=== PATIENT | male | born 1960 | race Caucasian/White ===

== ENCOUNTER 2021-09-05 05:31 | Outpatient (CLI) | payer BC ==
[~2021-09-05] VITALS: Ht 180.3 cm; Wt 106.6 kg
[2021-09-05] MEDS ORDERED: CYAN250014 PO (10:39)
[2021-09-05] MEDS ORDERED: FLUT1DIS26 IH (10:39)
[2021-09-05] MEDS ORDERED: ASCO100024 PO (10:39)
[2021-09-05] MEDS ORDERED: MV-M1TAB20 PO (10:39)
[2021-09-05] MEDS ORDERED: FAMO-144 PO (10:39)
[2021-09-05] MEDS ORDERED: ZINC50TA11 PO (10:39)
== END 2021-09-05 11:05 | disposition home or self-care (01) ==
LOC: PREOP 05:31
PROVIDERS: ATTEND Internal Medicine
DX: Z01.818 Encounter for other preprocedural examination (principal)

== ENCOUNTER 2021-09-08 07:15 | Day surgery (SDC) | payer BC ==
--- NOTE | 2021-09-04 16:15 | HISTORY AND PHYSICAL ---
DATE OF SERVICE: COLONOSCOPY HISTORY AND PHYSICAL HISTORY: The patient is a 60-year-old white male referred for his first screening colonoscopy. He seemed to be of average risk as he is not aware of any family history for colon cancer. He denies bright red blood per rectum, melena, change in bowel habit or change in weight. He also denies abdominal pain. PAST MEDICAL HISTORY: Significant for lumbar radiculopathy as well as cervical radiculopathy, which required cervical fusion and lumbar diskectomy. He suffered a cervical fracture that required lana stabilization a number of years ago and has done well since. 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 SOCIAL HISTORY: Pertinent for occasional alcohol consumption in moderation. Past medical history other than above is significant for asthma, under good control on Advair per his report and gastroesophageal reflux for which she takes pantoprazole. REVIEW OF SYSTEMS: CONSTITUTIONAL: Denies night sweats, chills, fever or change in weight. GASTROINTESTINAL: As noted in the HPI. PULMONARY: Denies cough, wheezing or shortness of breath. Good asthma control. CARDIOVASCULAR: Denies orthopnea, PND, pedal edema, dyspnea on exertion or chest discomfort. PHYSICAL EXAMINATION: GENERAL: Reveals a well-appearing white male in no acute distress. VITAL SIGNS: Weight 238 pounds, blood pressure 130/82. HEENT: Unremarkable. CHEST: Clear. CARDIOVASCULAR: Reveals a regular rate and rhythm without murmur, S3 or S4. ABDOMEN: Soft, supple without mass, organomegaly or tenderness. EXTREMITIES: Reveal no cyanosis, clubbing or edema. ADDITIONAL FAMILY HISTORY: Mother at age 70 of an AR. Father at age of 64 of an AR and was a heavy smoker. ASSESSMENT AND PLAN: The patient is being set up for his first screening colonoscopy, deemed to be of average risk as noted above. Prep instructions with the Suprep kit were given and questions were answered. I thank you for the referral of this pleasant gentleman. Job ID: [id number] DocumentID: [id number] Dictated Date: 08/28/2021 16:57:25 [employer] Cutter Date: 08/28/2021 17:11:20 Dictated By: DONALD GUILLORY MD [facility]
[~2021-09-08] VITALS: Ht 180 cm; Wt 106.6 kg
[~2021-09-08 07:15] MED LIST: ASCO100024 PO; CYAN250014 PO; FAMO-144 PO; FLUT1DIS26 IH; MV-M1TAB20 PO; ZINC50TA11 PO
[2021-09-08] MEDS ORDERED: LACTATED RINGERS 1,000 ML IV STA (07:18)
[2021-09-08] MEDS ORDERED: LACTATED RINGERS 1,000 ML IV ONE (07:26)
[2021-09-08 07:27] VITALS: BP 102/78
[2021-09-08] MEDS ORDERED: PROPOFOL INJECTION 50 ML IV ONE (07:39)
--- NOTE | 2021-09-08 08:09 | Pre-Op Note & Conscious Sedat ---
Pre-Operative Progress Note H&P Reviewed The H&P was reviewed, patient examined and no changes noted. Date H&P Reviewed: Sep 08, 2021 Time H&P Reviewed: 08:09 Conscious Sedation Pre-Proced ASA Score 2 For ASA 3 and 4: Consider anesthesia and medical clearance. Also, for patients with a history of failed moderate sedation consider anesthesia. Airway Lungs Heart ASA score ASA 1: a normal healthy patient ASA 2: a patient with a mild systemic disease (mid diabetes, controlled hypertension, obesity ASA 3: a patient with a severe systemic disease that limits activity (angina, COPD, prior Myocardial infarction) ASA 4: a patient with an incapacitating disease that is a constant threat to life (CHF, renal failure) ASA 5: a moribund patient not expected to survive 24 hrs. (ruptured aneurysm) ASA 6: a declared brain- patient whose organs are being harvested. For emergent operations, add the letter E after the classification Mallampati Classification Grade 2 Sedation Plan Analgesia, Amnesia, Plan communicated to team members, Discussed options with patient/fam, Discussed risks with patient/fam The patient is an appropriate candidate to undergo the planned procedure, sedation, and anesthesia. The patient immediately re-assessed prior to indication. DONALD GUILLORY MD Sep 08, 2021 08:09
[2021-09-08 08:30] VITALS: BP 111/70
[2021-09-08 08:35] VITALS: BP 98/63
[2021-09-08 08:39] VITALS: BP 106/66
--- NOTE | 2021-09-08 08:57 | Anesthesia-General Post-Op ---
MAC Patient Condition Mental Status/LOC: Same as Preop Cardiovascular: Satisfactory Nausea/Vomiting: Absent Respiratory: Satisfactory Pain: Controlled Complications: Absent Post Op Complications Complications None Follow Up Care/Instructions Patient Instructions None needed. Anesthesiology Discharge Order Discharge Order Patient is doing well, no complaints, stable vital signs, no apparent adverse anesthesia problems. No complications reported per nursing. BREANA MCCLURE CRNA Sep 08, 2021 08:57
[2021-09-08 09:05] VITALS: BP 111/68
--- NOTE | 2021-09-08 12:48 | OPERATIVE REPORT ---
DATE OF SERVICE: COLONOSCOPY SUMMARY INDICATION FOR THE PROCEDURE: Screening colonoscopy. DESCRIPTION OF PROCEDURE: The patient was placed in the left lateral decubitus position. Prior to undergoing colonoscopy, digital rectal evaluation was performed. Anal sphincter tone was normal and the perianal reflexes intact. The prostate is normal in size and anodular on digital inspection. No abnormalities were noted on digital inspection of anal canal or distal rectal vault. Colonoscope was then inserted into the rectum and under direct visualization advanced to cecum. The cecum was identified by identification of ileocecal valve and cecal strap. Photographic documentation was obtained. Quality of prep was good. FINDINGS: There was no evidence for internal or external hemorrhoids and the rectum was unremarkable. Several small to medium size sigmoid diverticulum were present without evidence for diverticulitis. No other sigmoid colonic abnormalities were appreciated. The descending colon was unremarkable. Several small transverse colonic diverticulum were noted, otherwise unremarkable. The hepatic flexure was normal. Present in the mid ascending colon was a 3 mm sessile adenomatous appearing polyp that was biopsied and ablated with minimal blood loss. The remainder of the ascending colon and cecum were unremarkable. ASSESSMENT: 1. One small sessile polyp was removed via hot forceps from the mid ascending colon. As long as there is no surprise on histopathology report, would advocate consideration for repeat screening colonoscopy in 10 years. 2. Mild diverticular disease noted in the sigmoid colon with several diverticulum in the transverse colon and one in the ascending colon. No evidence for diverticulitis. 3. Prostate is normal in size and unremarkable on digital inspection. I thank you for the referral of this pleasant gentleman. Job ID: [id number] DocumentID: [id number] Dictated Date: 09/08/2021 08:33:13 Scientific Editor Date: 09/08/2021 12:48:23 Dictated By: DONALD GUILLORY MD
== END 2021-09-08 09:10 | disposition home or self-care (01) ==
LOC: ENDO 07:15
PROVIDERS: ATTEND Internal Medicine
DX: Z12.11 Encounter for screening for malignant neoplasm of colon (principal); D12.2 Benign neoplasm of ascending colon; K57.30 Diverticulosis of large intestine without perforation or abscess without bleeding
CPT/HCPCS: 88305

== ENCOUNTER → 2021-10-25 | Outpatient (CLI) | payer BC ==
[~2021-10-25] MED LIST changes: +RT-ALBUTEROL SULF 2.5 MG/3 ML PRE-MIX VIAL INH ONE
== END ==
LOC: RT 09:15
PROVIDERS: ATTEND Family Medicine
DX: J45.909 Unspecified asthma, uncomplicated (principal)
CPT/HCPCS: 94060; 94726; 94729

== ENCOUNTER 2021-11-02 06:10 | Outpatient (CLI) | payer BC ==
[~2021-11-02] VITALS: Ht 177.8 cm; Wt 103.4 kg
[~2021-11-02 06:10] MED LIST changes: -RT-ALBUTEROL SULF 2.5 MG/3 ML PRE-MIX VIAL INH ONE
[2021-11-02] MEDS ORDERED: RT-ALBUINH IH (13:34)
[2021-11-02] MEDS ORDERED: VITA1CAP PO (13:34)
== END 2021-11-03 14:43 | disposition home or self-care (01) ==
LOC: PREOP 06:10
PROVIDERS: ATTEND Internal Medicine
DX: Z01.818 Encounter for other preprocedural examination (principal)

== ENCOUNTER 2021-11-14 06:42 | Day surgery (SDC) | payer BC ==
--- NOTE | 2021-11-02 08:12 | HISTORY AND PHYSICAL ---
DATE OF SERVICE: EGD H AND P The patient is a 61-year-old white male referred by Dr. Rojas for EGD evaluation. He reports 2- to 3-month history of epigastric pain with intermittent regurgitation. He denies dysphagia, but has had some nausea. He has a past history of cholecystectomy and ventral hernia repair, both several years ago. He does report that he will sometimes have abdominal bloating. He has noted a decrease in portion size and over the past 3 months, his weight is down 7 pounds from 238 to 231, documented by our scales. I had performed colonoscopy on him a little over 2 months ago, for which one tubular adenoma was removed from the ascending colon via hot forceps. He did have mild diverticular disease noted, confined to the sigmoid colon with several transverse colonic diverticulum and one ascending colonic diverticulum being noted without evidence for diverticulitis. He denies melena or bright red blood per rectum. PHYSICAL EXAMINATION: GENERAL: Reveals a white male, did not appear to be in acute distress. Blood pressure 130/70, heart rate 76 and regular. HEENT: Unremarkable. Sclerae nonicteric. CHEST: Clear. CARDIOVASCULAR: Reveals a regular rate and rhythm without murmur, S3, or S4. ABDOMEN: Soft, supple. Mild epigastric discomfort to palpation without rebound or guarding. No mass or organomegaly noted. No bruits noted. No evidence for abdominal aortic aneurysm. Likely very small periumbilical hernia noted on Valsalva, which the patient sometimes feels, but is not having any significant pain nor was any umbilical pain noted at the time of examination. EXTREMITIES: Reveal no cyanosis, clubbing or edema. ASSESSMENT AND PLAN: For further investigation of epigastric pain with weight loss and regurgitation, the patient is being set up for EGD evaluation. He is going to be gone for the next 10 days, so this will have to be done on return, advised smaller portions more frequently and continue to avoid aspirin or nonsteroidal medication in the interim. He will continue Pepcid complete one each morning for now. If he is having more nighttime symptoms, he can double it up to twice daily. I thank you for the referral of this pleasant gentleman. Job ID: [id number] DocumentID: [id number] Dictated Date: 10/25/2021 15:57:18 Typewriter Operator Automatic Date: 10/25/2021 19:58:55 Dictated By: DONALD GUILLORY MD
[~2021-11-14] VITALS: Ht 177.8 cm; Wt 103.6 kg
[~2021-11-14 06:42] MED LIST changes: +RT-ALBUINH IH; +VITA1CAP PO
[2021-11-14] MEDS ORDERED: LACTATED RINGERS 1,000 ML IV STA (07:24)
[2021-11-14] MEDS ORDERED: HURRICAINE EXT TUBE (BENZOCAINE) XX PRN (07:30)
[2021-11-14 07:40] VITALS: BP 129/84
[2021-11-14] MEDS ORDERED: MIDAZOLAM 2 MG/2 ML (VERSED) VIAL ONE (08:09)
[2021-11-14] MEDS ORDERED: PROPOFOL INJECTION 50 ML IV ONE (08:09)
--- NOTE | 2021-11-14 08:49 | Pre-Op Note & Conscious Sedat ---
Pre-Operative Progress Note H&P Reviewed The H&P was reviewed, patient examined and no changes noted. Date H&P Reviewed: November 14, 2021 Time H&P Reviewed: 07:40 Conscious Sedation Pre-Proced ASA Score 2 For ASA 3 and 4: Consider anesthesia and medical clearance. Also, for patients with a history of failed moderate sedation consider anesthesia. Airway Lungs Heart ASA score ASA 1: a normal healthy patient ASA 2: a patient with a mild systemic disease (mid diabetes, controlled hypertension, obesity ASA 3: a patient with a severe systemic disease that limits activity (angina, COPD, prior Myocardial infarction) ASA 4: a patient with an incapacitating disease that is a constant threat to life (CHF, renal failure) ASA 5: a moribund patient not expected to survive 24 hrs. (ruptured aneurysm) ASA 6: a declared brain- patient whose organs are being harvested. For emergent operations, add the letter E after the classification Mallampati Classification Grade 2 Sedation Plan Analgesia, Amnesia, Plan communicated to team members, Discussed options with patient/fam, Discussed risks with patient/fam The patient is an appropriate candidate to undergo the planned procedure, sedation, and anesthesia. The patient immediately re-assessed prior to indication. DONALD GUILLORY MD November 14, 2021 08:49
[2021-11-14 09:05] VITALS: BP 110/68
[2021-11-14 09:10] VITALS: BP 104/65
--- NOTE | 2021-11-14 09:11 | Anesthesia-General Post-Op ---
MAC Patient Condition Mental Status/LOC: Same as Preop Cardiovascular: Satisfactory Nausea/Vomiting: Absent Respiratory: Satisfactory Pain: Controlled Complications: Absent Post Op Complications Complications None Follow Up Care/Instructions Patient Instructions None needed. Anesthesiology Discharge Order Discharge Order Patient is doing well, no complaints, stable vital signs, no apparent adverse anesthesia problems. No complications reported per nursing. SHEELA CANELA CRNA November 14, 2021 09:11
[2021-11-14 09:15] VITALS: BP 116/69
[2021-11-14 09:20] VITALS: BP 116/69
[2021-11-14 09:39] VITALS: BP 112/75
--- NOTE | 2021-11-14 14:28 | OPERATIVE REPORT ---
DATE OF SERVICE: EGD SUMMARY INDICATION FOR THE PROCEDURE: Regurgitation, nausea and epigastric pain. DESCRIPTION OF PROCEDURE: The patient was placed in the left lateral decubitus position. The endoscope was inserted in the oral cavity and under direct visualization, esophagus was intubated. The endoscope was passed down the esophagus through the stomach and second portion of the duodenum. A careful inspection was made as the endoscope was withdrawn. FINDINGS: The posterior pharynx, epiglottis, true and false vocal folds and arytenoid aperture were unremarkable to gross inspection. Proximal, mid and distal esophagus were unremarkable as well. There was no evidence for erosive esophagitis or Miller's change. There is no evidence for hiatal hernia formation. There was evidence to suggest underlying lower esophageal sphincter laxity. The cardia and the fundus of the stomach were unremarkable. There was rather diffuse mild antral erythema without erosion or ulceration. A biopsy was obtained and submitted for Helicobacter evaluation. The pylorus, pyloric channel, duodenal bulb, and second portion unremarkable as well. As the patient has regurgitation with a history of allergic related asthma, I did obtain biopsies from the esophagus to evaluate for eosinophilic esophagitis. ASSESSMENT: Findings suggest laxity of the lower esophageal sphincter, likely contributing to patient's symptoms. I discussed that weight loss would be benefit for this patient with recommendations for lowering carbohydrates in his diet and increasing physical activity after taking history. If there is evidence for Helicobacter, we would advise treatment and we will initiate therapy. In the meantime, he was advised to continue Pepcid-AC and was otherwise reassured by today's findings. I thank you for the referral of this pleasant gentleman. Job ID: [id number] DocumentID: [id number] Dictated Date: 11/14/2021 10:19:02 [employer] Reconditioning Inspector Date: 11/14/2021 14:28:14 Dictated By: DONALD GUILLORY MD [facility]
== END 2021-11-14 10:10 | disposition home or self-care (01) ==
LOC: ENDO 06:42
PROVIDERS: ATTEND Internal Medicine
DX: K20.90 Esophagitis, unspecified without bleeding (principal); R11.2 Nausea with vomiting, unspecified; R63.4 Abnormal weight loss; E66.9 Obesity, unspecified; Z68.33 Body mass index [BMI] 33.0-33.9, adult

== ENCOUNTER → 2022-01-19 | Outpatient (CLI) | payer BC ==
--- NOTE | 2022-01-19 12:53 | Diagnostic Imaging Report ---
INDICATION: Low back pain. TIME OF EXAM: 12:21 p.m. FINDINGS: Heart size is normal. There is linear atelectasis in both bases. Otherwise, lungs are clear. There is no effusion or pneumothorax. Postop changes in lower cervical spine are noted. IMPRESSION: Bibasilar subsegmental atelectasis. Dictated by: Dictated on workstation # [id number]
--- NOTE | 2022-01-19 12:54 | Diagnostic Imaging Report ---
Indication: Back pain. Time of Exam: 12:23 PM Curvature of the lumbar spine is normal. There is minimal anterolisthesis of L3 on L4. Vertebral body heights are maintained without evidence of acute compression fracture. There is degenerative disc disease with variable disc space narrowing and spurring, greatest L5-S1 level. Impression: Lumbar spondylosis with anterolisthesis L3 on L4. No acute fracture is detected. Dictated by: Dictated on workstation # [id number]
== END ==
LOC: RAD 12:00
PROVIDERS: ATTEND Family Medicine
DX: M47.816 Spondylosis without myelopathy or radiculopathy, lumbar region (principal); M43.16 Spondylolisthesis, lumbar region; J45.909 Unspecified asthma, uncomplicated
CPT/HCPCS: 71046; 72100

== ENCOUNTER → 2023-03-19 | Outpatient (CLI) | payer BC, SELFPAY ==
[~2023-03-19] MED LIST changes: +ALBU8.5H6 IH; -RT-ALBUINH IH
--- NOTE | 2023-03-19 11:26 | Diagnostic Imaging Report ---
INDICATION: Family history of coronary disease, coronary screening. CT coronary calcium study performed with noncontrast images of the heart followed by calculation of coronary calcium score. Dose reduction protocol was used. Raw data images demonstrate no focal pulmonary consolidation or lesion. There is some scarring or atelectasis in the visualized portions of the left lung, the entirety of the lung brown are not included on the study. There is no mediastinal adenopathy, the aorta is not aneurysmal. Coronary calcium portion of the study shows calcification in the mid LAD with score of 25.4. There is no significant calcification in the left main, left circumflex, or right coronary arteries. IMPRESSION: Coronary calcium score of 25 is compatible with mild overall plaque burden, with plaque seen in the LAD. Remaining vessel territory showed no significant calcification. Dictated by: Dictated on workstation # [id number]
== END ==
LOC: RAD 09:15
PROVIDERS: ATTEND Family Medicine
DX: Z13.6 Encounter for screening for cardiovascular disorders (principal); Z84.89 Family history of other specified conditions
CPT/HCPCS: 75571